=== PATIENT | male | born 1970 | race Caucasian/White ===

== ENCOUNTER 2021-01-10 15:34 | Emergency (ER) | payer OTHER ==
[~2021-01-10] VITALS: Ht 180.3 cm; Wt 90.7 kg
[~2021-01-10 15:34] MED LIST: CHLO25 PO
== END 2021-01-10 16:19 | disposition home or self-care (01) ==
LOC: ER 15:34
DX: S01.01XA Laceration without foreign body of scalp, initial encounter (principal); Z23 Encounter for immunization; F17.210 Nicotine dependence, cigarettes, uncomplicated; W19.XXXA Unspecified fall, initial encounter
CPT/HCPCS: 12013; 90471; 90714; 99282-25

== ENCOUNTER → 2021-11-11 | Outpatient (CLI) | payer OTHER ==
[2021-11-16 13:27] LABS: Stool Occult Bld Immuno 1 Negative (NEGATIVE)
== END | disposition home or self-care (01) ==
LOC: LAB SHORT 18:00 → LAB 18:00
PROVIDERS: Registered Nurse
DX: Z12.11 Encounter for screening for malignant neoplasm of colon (principal)
CPT/HCPCS: G0328

== ENCOUNTER 2022-01-10 10:47 | Day surgery (SDC) | payer OTHER ==
[~2022-01-10] VITALS: Ht 175.3 cm; Wt 92.8 kg
[2022-01-10] MEDS ORDERED: DICLOFENAC SOD100 GM (11:40)
[2022-01-10] MEDS ORDERED: DICL75ER (11:40)
[2022-01-10] MEDS ORDERED: ATOR10 (11:41)
[2022-01-10] MEDS ORDERED: KEPPRA1000 M1 (11:42)
--- NOTE | 2022-01-10 12:52 | NUR ---
01/10/22 1252 Avelino Spann 15MLS OF BUPIVICAINE 0.25% MIXED 1:1 WITH 15MLS OF BUPIVICAINE 0.75% TO CREATE A LOCAL SOLUTION OF BUPIVICAINE 0.5%. 0.15ML OF EPI 1MG/ML ADDED TO THE 30ML OF BUPIVICAINE 0.5% TO CREATE BUPIVICAINE 0.5% WITH EPI 1:200,000. .
== END 2022-01-10 14:02 | disposition home or self-care (01) ==
LOC: ORSCSDS 10:47
PROVIDERS: Podiatrist Foot & Ankle Surgery
PROC: 0SPF04Z Removal of Internal Fixation Device from Right Ankle Joint, Open Approach (ICD-10-PCS; principal; 2022-01-10 12:30)
DX: M19.171 Post-traumatic osteoarthritis, right ankle and foot (principal); T84.84XA Pain due to internal orthopedic prosthetic devices, implants and grafts, initial encounter; J44.9 Chronic obstructive pulmonary disease, unspecified; Z79.899 Other long term (current) drug therapy
CPT/HCPCS: J0171; J0690; J1100; J2250; J2405; J2704; J3010; J7120